=== PATIENT | female | born 1985 | race Caucasian/White ===

== ENCOUNTER → 2017-03-21 | Outpatient (CLI) | payer BC ==
[~2017-03-21] MED LIST: PRENTAB26 PO
[2017-03-21 16:41] LABS: BASO % 0.2 %; BASO ABS # 0.02 K/uL (0-0.2); EOS % 1.7 %; IG% 0.4 %; LYMPH % 18.3 %; LYMPH ABS # 1.88 K/uL (1.2-3.4); MEAN CELL VOLUME 85.8 fL (80-100); MEAN CORPUSCULAR HEMOGLOBIN 30.9 pg (25-34); MEAN CORPUSCULAR HGB CONC 35.9 g/dl (32-36); MEAN PLATELET VOLUME 10.5 fL (7.4-10.4); MONO % 3.8 %; NEUT % 75.6 %; PLATELET COUNT 329 K/uL (130-400); RED BLOOD COUNT 4.31 M/uL (4.2-5.4); WHITE BLOOD COUNT 10.25 K/uL (4.8-10.8)
[2017-03-21 16:42] LABS: COMPLETE YES
== END | disposition home or self-care (01) ==
LOC: C.LAB1850 15:07
PROVIDERS: ATTEND Obstetrics & Gynecology
DX: Z34.91 Encounter for supervision of normal pregnancy, unspecified, first trimester (principal); Z3A.00 Weeks of gestation of pregnancy not specified

== ENCOUNTER → 2017-03-21 | Outpatient (CLI) | payer BC ==
[2017-03-21 18:29] LABS: URINE APPEARANCE CLEAR (CLEAR); URINE BILIRUBIN NEG (NEG); URINE COLOR YELLOW; URINE NITRITE NEG (NEG); URINE SPECIFIC GRAVITY 1.021 (1.000-1.030); UROBILINOGEN NEG (NEG)
[2017-03-21 18:37] LABS: MANUAL MICROSCOPIC REQUIRED? NO; REVIEW REQ? NO
[2017-03-25 01:36] LABS: CHLAMYDIA TRACH RNA*** NOT DETECTED (NOT DETECTED); GC (NEIS GONORRHOEAE)RNA** NOT DETECTED (NOT DETECTED)
== END | disposition home or self-care (01) ==
LOC: C.LABSPEC 17:30
PROVIDERS: ATTEND Obstetrics & Gynecology
DX: Z34.91 Encounter for supervision of normal pregnancy, unspecified, first trimester (principal); Z3A.00 Weeks of gestation of pregnancy not specified

== ENCOUNTER → 2017-03-21 | Outpatient (CLI) | payer BC | END | disposition home or self-care (01) | LOC: C.PAPS 10:26 | PROVIDERS: ATTEND Obstetrics & Gynecology | DX: Z34.90 Encounter for supervision of normal pregnancy, unspecified, unspecified trimester (principal); Z3A.00 Weeks of gestation of pregnancy not specified ==

== ENCOUNTER → 2017-05-24 | Outpatient (CLI) | payer BC | END | disposition home or self-care (01) | LOC: C.LAB 07:14 | PROVIDERS: ATTEND Obstetrics & Gynecology | DX: O28.1 Abnormal biochemical finding on antenatal screening of mother (principal); Z3A.00 Weeks of gestation of pregnancy not specified ==

== ENCOUNTER → 2017-08-08 | Outpatient (CLI) | payer BC | END | disposition home or self-care (01) | LOC: C.LABSPEC 17:44 | PROVIDERS: ATTEND Obstetrics & Gynecology | DX: Z34.93 Encounter for supervision of normal pregnancy, unspecified, third trimester (principal) ==

== ENCOUNTER → 2017-08-09 | Outpatient (CLI) | payer BC ==
[2017-08-09 07:53] LABS: HEMATOCRIT 31.7 % (37-47)
== END | disposition home or self-care (01) ==
LOC: C.LAB 07:07
PROVIDERS: ATTEND Obstetrics & Gynecology
DX: Z34.93 Encounter for supervision of normal pregnancy, unspecified, third trimester (principal)

== ENCOUNTER → 2017-10-02 | Outpatient (CLI) | payer BC | END | disposition home or self-care (01) | LOC: C.LABSPEC 18:35 | PROVIDERS: ATTEND Obstetrics & Gynecology | DX: Z34.83 Encounter for supervision of other normal pregnancy, third trimester (principal); Z3A.00 Weeks of gestation of pregnancy not specified ==

== ENCOUNTER 2017-10-26 22:40 | Inpatient (IN) | payer BC ==
[~2017-10-26] VITALS: Ht 152.4 cm; Wt 61.0 kg
[2017-10-26] MEDS ORDERED: LACTATED RINGER'S 1000ML 1,000 ML IV PRN (22:51)
[2017-10-26] MEDS ORDERED: LACTATED RINGER'S 1000ML 1,000 ML IV SCH (22:51)
[2017-10-26] MEDS ORDERED: OXYTOCIN 30 UNITS/500ML NSS IV ONE (22:53)
[2017-10-26] MEDS ORDERED: LANOLIN OINT EXT PRN (23:45)
[2017-10-26] MEDS ORDERED: OXYTOCIN 30 UNITS/500ML NSS IV PRN (23:45)
[2017-10-26] MEDS ORDERED: ACETAMINOPHEN 325 MG TAB PO PRN (23:45)
[2017-10-26] MEDS ORDERED: SUPERCREAM 0.870 % 15GM JAR EXT PRN (23:45)
[2017-10-26] MEDS ORDERED: OXYCODONE/ACETAMINOPHEN 5-325 TAB PO PRN (23:45)
[2017-10-26] MEDS ORDERED: DIPHTHERIA/TETANUS/PERTUSSIS 0.5 ML SYR/VIAL IM. ONE (23:45)
[2017-10-26] MEDS ORDERED: HYDROCORTISONE ACETATE 25 MG SUPP PR PRN (23:45)
[2017-10-26] MEDS ORDERED: BENZOCAINE 20% AER SPR 82.5 GM CAN EXT PRN (23:45)
[2017-10-27 00:29] VITALS: Ht 152.4 cm; Wt 61.0 kg
--- NOTE | 2017-10-27 01:04 | DELIVERY SUMMARY ---
DATE OF OPERATION: 10/26/2017 PREOPERATIVE DIAGNOSES: 1. Intrauterine at 39 and 4/7 weeks. 2. Spontaneous rupture of membranes. 3. Active labor. POSTOPERATIVE DIAGNOSES: 1. Intrauterine at 39 and 4/7 weeks. 2. Spontaneous rupture of membranes. 3. Active labor. PROCEDURES: 1. Normal spontaneous vaginal delivery. 2. First-degree sina-laceration with repair. SURGEON: Krystin Valdivia MD ANESTHESIA: Local infiltration of lidocaine to the vagina. ESTIMATED BLOOD LOSS: 400 mL. PROCEDURE IN DETAIL: The patient presented to labor and delivery in active labor with an anterior lip. When I got into the room after another couple of contractions, she was complete-complete and +1 station. She then pushed over 3 contractions to deliver a viable female in LOVELY presentation. There was no nuchal cord. The nose and mouth were bulb suctioned and the rest of the infant was then delivered without difficulty. The nose and mouth were again bulb suctioned. The was placed on maternal abdomen for drying and attention. The cord was clamped and cut at 1 minute of life. Cord blood and segment were obtained. Placenta was delivered spontaneously intact with a 3-vessel cord. Cervix, sulci, and rectum were examined and found to be intact. A small first degree vaginal/perineal laceration was repaired with 3-0 Vicryl in a normal standard fashion. After infiltrating the area with 1% lidocaine, hemostasis was obtained with dilute Pitocin and fundal massage. Estimated blood loss 400 mL. Apgars 8 and 9. Mother and baby doing well at the end of the delivery. I attest to the content of the Intraoperative Record and any orders documented therein. Any exception s are noted below.
[2017-10-27 03:00] VITALS: BP 128/62; PULSE 80; TEMP 36.4
[2017-10-27] MEDS: IBUPROFEN 600 MG TAB PO PRN ×2 (05:11→15:10)
[2017-10-27 06:03] LABS: HEMOGLOBIN 11.9 g/dL (12.0-16.0)
--- NOTE | 2017-10-27 06:27 | Progress Note ---
Subjective October 27, 2017. Subjective conversation w/ patient Ambulation: ambulating normally Voiding: no voiding problems Diet Tolerance: Regular Diet Lochia: Moderate Feeding Type: Breast Feeding Pain: Minimal abdominal cramps reported, improved with analgesia Review of Systems Constitutional: No fever, No chills Respiratory: No shortness of breath Cardiac: No chest pain Abdomen: No nausea, No vomiting Objective Vital Signs Date Time Temp Pulse Resp B/P (MAP) Pulse Ox O2 Delivery O2 Flow Rate FiO2 10/27/17 03:00 Room Air 10/27/17 03:00 36.4 80 20 128/62 (84) Room Air Physical Exam General Appearance: WELL-APPEARING, WD/WN, NO APPARENT DISTRESS Respiratory/Chest: lungs clear, normal breath sounds Cardiovascular: regular rate, rhythm Abdomen: soft Fundus: Firm, Non-Tender, Relation to Umbilicus (at u) Extremities: no pedal edema, no calf tenderness Laboratory Results Last 24 Hours Test 10/27/17 05:46 Hemoglobin 11.9 g/dL Hematocrit 34.0 % Assessment and Plan Post- (1) Continue Routine Care: 32F s/p NVD day 1 - A+, Rubella Immune, GBS -ve - pt doing well clinically - Vital signs reviewed and WNL - Encourage ambulation, monitor and control pain with Motrin PRN - anticipate d/c tomorrow Resident Physician Supervision Note: I interviewed and examined the patient. Discussed with Dr. Stone and agree with findings and plan as documented in the note. Any exceptions or clarifications are listed here: Doing well. Routine care. Documented By: Krystin Valdivia Resident Tracking Resident Involvement: Resident Care Provided Care Provided: OB Delivery
--- NOTE | 2017-10-27 06:36 | Discharge Instructions ---
Discharge Instructions Date of Service October 27, 2017. Admission Reason for Admission: Check Rupture Discharge Discharge Diagnosis / Problem: Discharge Goals Goal(s): Routine recovery after Medications Continue Dispensed Medications: supercream, dermaplast, tucks, lansinoh Activity Recommendations Activity Limitations: per Instructions/Follow-up section . Instructions / Follow-Up Instructions / Follow-Up ACTIVITY RECOMMENDATIONS: * Gradual return to full activity over the next 2-3 weeks. * No lifting - nothing heavier than baby over the next 2-3 weeks. * Do not engage in vigorous exercise, sexual activity or sports until cleared by your physician. * Do not drive or operate any motorized equipment until cleared by your physician. * You may shower/bathe daily. MEDICATIONS: For discomfort or pain, you may use Acetaminophen (Tylenol), Ibuprofen (Advil), or Naproxen (Aleve) following the package directions. For constipation you may use Colace following the package directions. BREAST CARE: If you are not breast feeding: * Wear a supportive bra 24 hours a day for one to two weeks. * Avoid stimulating your breasts and nipples as much as possible during the first few weeks after delivery. * When taking a shower, have the warm water hit your back, not breasts. * When your breasts feel full, apply ice packs. Usually three to four times a day helps ease the discomfort. * Take a mild pain medication (Tylenol / Motrin) when you are uncomfortable. If breast feeding: * Use breast milk to lubricate nipples. Lansinoh cream may be used for sore nipples. You do not need to remove cream prior to breast feeding. If using a different brand of cream, check the label for directions regarding removal of cream prior to nursing. * Wear a supportive bra. * If having problems with breasts or breast feeding, call a sap ppm consultant or your health care provider. EPISIOTOMY CARE: After delivery, if you have an episiotomy (stitches), the following steps will ease discomfort and aid healing. * For the first 24 hours after delivery, place ice packs next to your episiotomy to help reduce swelling. * After the first 24 hour-period, sitz baths, either portable or in the tub, are suggested. A shower with a shower arm sprayed over the episiotomy may be comforting. * Lexii care should be done after each voiding and bowel movement. Squirt warm water from a plastic bottle over the perineum (region of the body between the anus and urinary opening) and pat dry. * Use Dermoplast to ease discomfort. Shake container. [place] directly over the episiotomy. Place a Tucks on a clean sanitary pad next to your episiotomy. SPECIAL CARE INSTRUCTIONS: When you are discharged from the hospital, it is important for you to follow the instructions listed below: * During the first week at home, you should be able to care for yourself and your baby. In addition, the usual light household activities are encouraged. * Limit your activities to the way you feel. Do not try to clean the house or move furniture. Be sensible. * If you actively engage in sports and have done so up until the time of your delivery, you may resume these activities as soon as you feel able. This may take up to one month or even longer. Use good judgment. * Continue to take your vitamins for at least six weeks after the of your baby. * Your diet need not be limited unless you were on a special diet before your delivery. Breast-feeding mothers need around 2500 calories per day and at least 64-80 ounces of fluid per day (8 to 10 glasses). * You should eat foods from the four major food groups. Crash diets or fad diets are to be avoided. Eating lean meats, fresh fruits and vegetables, low-fat dairy products, high fiber foods and a regular exercise program, will help you get back to your pre- weight without putting your health at risk. * Constipation is sometimes a problem after delivery. Take a mild laxative as needed. If breast feeding, Milk of Magnesia is acceptable to use. You may use a suppository or Fleets enema if no episiotomy. * A daily shower or tub bath is suggested. Be sure to thoroughly and gently dry the perineum. * A bloody vaginal discharge will usually continue until around four weeks post . A small amount of bleeding may continue for as long as six weeks. Vaginal discharge changes from the bright red bleeding after delivery to pink then brownish and finally yellowish-pink before becoming white and disappearing. * Bleeding may increase with activity. Your first period may come in 4-8 weeks. If you are breast feeding, your period may be delayed even longer. * Adwolf (sex) can begin whenever both you and your partner feel comfortable and do not have any form of genital infection. It is recommended that you wait at least six weeks for internal and external healing to occur. If you have questions, please talk to your health care practitioner. A condom should be used to prevent infection and . * Foreplay, gentle intercourse and lubrication is very important the first several times to prevent pain. A water-based lubricant such as K-Y jelly or Astroglide may be used. * If you have RH negative blood and your baby is RH positive, you will receive RHOGAM by injection prior to discharge. The nurse will give you a card to keep with you that has the date and place that you received RHOGAM after delivery. * During your care, you had a Rubella screen done to check for the presence of rubella antibodies in your blood. If your test was negative, you will receive a Rubella vaccine prior to discharge. This vaccine may cause a fever, soreness at the injection site and flu-like symptoms. If these symptoms persist, notify your health care practitioner. is not advised for one month after a Rubella vaccine. * Verbalizes understanding of car seat law as reviewed with patient nursing. * Car Seat hand-out given and reviewed with patient by nursing. * Shaken baby information reviewed with patient by nursing. Call you doctor if: * Heavy bleeding (saturating several pads an hour) or passing clots the size of your fist. * A fever >101 degrees F (38.3 degrees C) on two occasions four hours apart and /or chills. * Unusual pain in the pelvic or vaginal areas. * "Baby Blues" lasting longer than two weeks. If you have any questions or concerns, call your health care practitioner at . FOLLOW UP VISIT: * Please call the office at to schedule a 6 week examination. It is important you keep this appointment. It is important for you to make arrangements for either yearly or twice yearly check-ups thereafter. Current Hospital Diet Patient's current hospital diet: Regular OB Diet Discharge Diet Recommended Diet: Regular Diet Pending Studies Studies pending at discharge: no Medical Emergencies . Who to Call and When: Medical Emergencies: If at any time you feel your situation is an emergency, please call [phone] immediately. . Non-Emergent Contact Non-Emergency issues call your: Primary Care Provider . . "Provider Documentation" section prepared by Andrea Stone. .
[2017-10-27 06:50] VITALS: BP 101/68; PULSE 76; TEMP 36.8
[2017-10-27] MEDS: PRENATAL VITAMIN TAB PO SCH (08:14)
[2017-10-27] MEDS: DOCUSATE SODIUM 100 MG CAP PO SCH ×2 (08:14→19:58)
[2017-10-27 12:00] VITALS: BP 106/69; PULSE 77; TEMP 37; O2SAT 97
[2017-10-27 16:05] VITALS: O2SAT 96
[2017-10-27 19:20] VITALS: BP 110/69; PULSE 80; TEMP 37; O2SAT 95
[2017-10-27 23:30] VITALS: BP 98/63; PULSE 75; TEMP 36.8
--- NOTE | 2017-10-28 06:44 | Progress Note ---
Subjective October 28, 2017. Subjective conversation w/ patient Ambulation: ambulating normally Voiding: no voiding problems Diet Tolerance: Regular Diet Lochia: Small Feeding Type: Breast Feeding Pain: Pt reports she does not have any pain Review of Systems Constitutional: No fever, No chills Respiratory: No shortness of breath Cardiac: No chest pain Abdomen: No nausea, No vomiting Objective Vital Signs Date Time Temp Pulse Resp B/P (MAP) Pulse Ox O2 Delivery O2 Flow Rate FiO2 10/27/17 23:30 36.8 75 16 98/63 (75) 10/27/17 23:30 Room Air 10/27/17 19:20 37.0 80 16 110/69 (83) 95 Room Air 10/27/17 16:05 96 Room Air 10/27/17 12:00 37.0 77 16 106/69 (81) 97 Room Air 10/27/17 07:45 Room Air 10/27/17 06:50 36.8 76 15 101/68 (79) Physical Exam General Appearance: WELL-APPEARING, WD/WN, NO APPARENT DISTRESS Respiratory/Chest: lungs clear, normal breath sounds Cardiovascular: regular rate, rhythm Abdomen: soft Fundus: Firm, Tender, Relation to Umbilicus (at u) Extremities: no pedal edema, no calf tenderness Assessment and Plan Post- Day#: 2 Continue Routine Care: 32F s/p NVD day 2 - A+, Rubella Immune, GBS -ve - pt doing very well clinically - Vital signs reviewed and WNL - pt ready for d/c today, will review d/c instructions Resident Physician Supervision Note: I interviewed and examined the patient. Discussed with Dr. Mendez and agree with findings and plan as documented in the note. Any exceptions or clarifications are listed here: [None] Documented By: Roberto Garber Resident Tracking Resident Involvement: Resident Care Provided Care Provided: OB Delivery
[2017-10-28 07:24] VITALS: BP 109/74; PULSE 80; TEMP 36.9
[2017-10-28] MEDS: PRENATAL VITAMIN TAB PO SCH (08:28)
[2017-10-28] MEDS: DOCUSATE SODIUM 100 MG CAP PO SCH (08:28)
[2017-10-28] MEDS: IBUPROFEN 600 MG TAB PO PRN (09:25)
[2017-10-28 11:58] VITALS: BP_DIAS 74; PULSE 80; TEMP 36.9
== END 2017-10-28 15:05 | disposition home or self-care (01) | DRG 775 ==
LOC: C.LD 22:40 → C.OPB 22:40 → C.LD 23:11 → C.OBG 10-27 02:58
PROVIDERS: ADMIT Obstetrics & Gynecology; ATTEND Obstetrics & Gynecology
PROC: 10E0XZZ Delivery of Products of Conception, External Approach (ICD-10-PCS; principal; 2017-10-26)
PROC: 0HQ9XZZ Repair Perineum Skin, External Approach (ICD-10-PCS; principal; 2017-10-26)
DX: O70.0 First degree perineal laceration during delivery (principal); Z37.0 Single live birth; Z3A.39 39 weeks gestation of pregnancy

== ENCOUNTER 2019-09-05 23:21 | Inpatient (IN) ==
[2019-09-06] MEDS ORDERED: OXYTOCIN 30 UNITS/500 ML BAG IV PRN ×2 (00:22→07:11)
[2019-09-06] MEDS ORDERED: LACTATED RINGER'S 1,000 ML IV PRN (00:22)
--- NOTE | 2019-09-06 00:26 | History & Physical Report ---
Date of Service September 06, 2019 Assessment & Plan (1) with 39 completed weeks gestation: (2) Normal labor: fetus category one. has definitely made change since last visit. given hx of rapid labor, will admit and expectantly manage. Anticipate . History of Present Illness Chief Complaint: contractions Primary Care Provider: Ike Trejo MD Patient is a 34yowf with iup at 39 6/7 weeks who presents to labor and delivery with complaints of contractions. Got regular about 10 pm. losing mucous plug. no vb/lof. +fm. This uncomplicated. Notes two previous rapid deliveries. labs--A+/ab-/ri/rprnr/hiv neg/hepb neg/gc/ct-/gbs neg/gtt x 1 normal. Allergies Allergy/AdvReac Type Severity Reaction Status Date / Time pseudoephedrine AdvReac Unknown VOMITING Verified 09/05/19 23:40 12 Hour Decongestant TB12 Allergy Mild GI SYMPTOMS Uncoded 09/05/19 23:39 Home Medications Home Medications Medication Instructions Recorded Confirmed Type vit-iron fum-folic ac 1 tab PO QAM 07/10/18 09/02/19 History [ Vitamin] ferrous sulfate PO 07/15/19 09/02/19 History Patient History Social History (Updated 01/27/19 @ 10:30 by Heather Olsen) Preferred Language: Albanian Communication Ability: Effective Physical Anthropologist Required: No Beliefs That Will Affect Care: None marital status: Current Living Situation: Spouse Current Living Situation Comment: 2 daughters, no pets current occupational status: employed current occupation: Speech language pathologist Feels Safe at Home: Yes Safety Concerns: Feels Safe At This Time Smoking Status: Former smoker Second Hand Exposure: No ; Hx Alcohol Use: No Hx Substance Use: No OB History g1--5/16, , 41 weeks, labor length 3 hours, 8#, no issues g2--5/18, , 39 weeks, labor length one hour, 8#, no issues 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 Review of Systems All systems reviewed & are unremarkable except as noted in HPI & below Physical Exam Constitutional: WD/WN, vitals as above Gastrointestinal (Abdomen): soft, gravid, nt Psychiatric: A+Ox3, euthymic affect Genitourinary: cx--3/80/-2 toco--q2-4min efm--130s with mod variability , accels to 150s, no decels Results & Data Vital Signs (Past 12 Hours) Vital Signs Temp Pulse Resp BP 09/05/19 23:40 36.3 C L 106 H 18 121/79 09/05/19 23:31 106 H 121/79 Code Status & VTE Plan VTE Prophylaxis Plan VTE Prophylaxis will be ordered: No Coding Level of Care Code None Diagnoses with 39 completed weeks gestation Z3A.39 Normal labor O80; Z37.9
[2019-09-06 00:41] LABS: Hematocrit (blood only) 36.7 % (37-47); Hemoglobin 12.7 g/dL (12.0-16.0); Mean Corpuscular Hemoglobin 30.4 pg (25-34); Mean Corpuscular Volume 87.8 fL (80-100); Mean Platelet Volume 10.6 fL (7.4-10.4); Platelet Count 226 K/uL (130-400); RDW Coefficient of Variation 15.2 % (11.5-14.5); RDW Standard Deviation 48.7 fL (36.4-46.3); Red Blood Count 4.18 M/uL (4.2-5.4); White Blood Count 10.49 K/uL (4.8-10.8)
[2019-09-06 00:49] LABS: Mean Corpuscular Hgb Conc 34.6 g/dL (32-36)
--- NOTE | 2019-09-06 03:29 | Labor Progress Brief Note ---
Date of Service September 06, 2019 Subjective tolerating contractions well. Assessment & Plan (1) Normal labor: continue expectant management. Offered arom, declines at this time. Fetus reassuring. Anticipate . Physical Exam Constitutional: WD/WN, vitals as above Psychiatric: A+Ox3, euthymic affect Genitourinary: cx--6+/100/-1 toco--q2-4min fm--130s with mod variability, small accels , no decels Results & Data Vital Signs (Past 12 Hours) Vital Signs Temp Pulse Resp BP 09/05/19 23:40 36.3 C L 106 H 18 121/79 09/05/19 23:31 106 H 121/79 Coding Level of Care Code None Diagnoses Normal labor O80; Z37.9
--- NOTE | 2019-09-06 06:14 | Labor Progress Brief Note ---
Date of Service September 06, 2019 Subjective getting more uncomfortable and feeling pressure Assessment & Plan (1) Normal labor: arom done, clear, continue current management. fetus reassuring anticipate . Physical Exam Constitutional: WD/WN, vitals as above Psychiatric: A+Ox3, euthymic affect Genitourinary: cx--8-9/100/0 toco--q2-3min efm--125 with mod variability, accels present Results & Data Vital Signs (Past 12 Hours) Vital Signs Temp Pulse Resp BP 09/05/19 23:40 36.3 C L 106 H 18 121/79 09/05/19 23:31 106 H 121/79 Coding Level of Care Code None Diagnoses Normal labor O80; Z37.9
[2019-09-06] MEDS ORDERED: ACETAMINOPHEN 325 MG TAB PO PRN (07:09)
[2019-09-06] MEDS ORDERED: OXYCODONE/ACETAMINOPHEN 5mg/325mg TAB PO PRN (07:09)
[2019-09-06] MEDS ORDERED: DIPHTHERIA/TETANUS/PERTUSSIS 0.5 ML SYR/VIAL IM ONE (07:11)
[2019-09-06] MEDS ORDERED: HYDROCORTISONE ACETATE 25 MG SUPP PR PRN (07:11)
[2019-09-06] MEDS ORDERED: bisacodyL 10 MG SUPP PR PRN (07:11)
[2019-09-06] MEDS ORDERED: BENZOCAINE 20% AER SPR 82.5 GM CAN EXT PRN (07:11)
[2019-09-06] MEDS ORDERED: OXYTOCIN 10 UNITS/ML VIAL IM ONE (07:11)
[2019-09-06] MEDS ORDERED: SUPERCREAM 0.870% 15 GM JAR EXT PRN (07:11)
--- NOTE | 2019-09-06 07:13 | Delivery Summary ---
Vaginal Delivery Summary Date of Service September 06, 2019 Vaginal Delivery Summary Pre-operative Diagnosis: at 39 6/7 active labor Post-operative Diagnosis: same shoulder dystocia first degree laceration Procedure: arom estefani, suprapubic pressure, posterior rotation of shoulder first degree laceration EBL: 400cc Anesthesia: local lidocaine Procedure: The patient pushed for 7 minutes to deliver a viable male in balta position. The nose and mouth were bulb suctioned on the perineum, no nuchal cord. On attempt to deliver the anterior shoulder, revealed a dystocia. It was resolved in approximately one minute wtih estefani, suprapubic pressure, and rotation of the posterior shoulder. The rest of the baby then delivered with terminal mec. The baby was immediately vigorous. The nose and mouth were again bulb suctioned and the infant was placed in the maternal abdomen for drying and attention. Cord was clamped and cut at one minute of life. Cord blood and segment obtained. Placenta delivered spontaneous, intact with a three vessel cord. Cervix/sulci/rectum were intact. A first degree perineal laceration was repaired in the normal standard fashion. Hemostasis obtained with dilute pitocin and fundal massage. Apgars were 8/9. Mother and baby doing well at the end of the delivery.
[2019-09-06] MEDS ORDERED: OXYTOCIN 10 UNITS/ML VIAL ONE (07:14)
[2019-09-06] MEDS: IBUPROFEN 600 MG TAB PO PRN ×2 (10:58→16:38)
[2019-09-06] MEDS: PRENATAL VITAMIN 1 TAB PO SCH (14:18)
[2019-09-06] MEDS: DOCUSATE SODIUM 100 MG CAP PO SCH ×2 (14:18→20:16)
--- NOTE | 2019-09-07 08:20 | Obstetrical Progress Note ---
Date of Service September 07, 2019 Assessment & Plan (1) : PPD#1 doing well. Continue routine care. Subjective Ambulation: ambulating normally Voiding: no voiding problems Diet Tolerance:: regular diet Lochia:: Moderate Feeding Type:: breast feeding PPD#1 doing well. Review of Systems All systems reviewed & are unremarkable except as noted in HPI & below Physical Exam Constitutional WD/WN, vitals as above no acute distress Respiratory normal respiratory effort Cardiovascular Rate/Rhythm: regular rate and regular rhythm Gastrointestinal (Abdomen) Inspection/Auscultation: abdomen normal to inspection; abdomen not distended Percussion/Palpation: abdomen soft Genitourinary OB Exam Abdomen: + fundal height Fundus: + firm; not tender Results & Data Vital Signs (Past 12 Hours) Vital Signs Temp Pulse Resp BP 09/07/19 03:10 36.7 C 93 H 16 98/65 L 09/06/19 23:10 36.6 C 77 16 105/68
[2019-09-07] MEDS: PRENATAL VITAMIN 1 TAB PO SCH (08:35)
[2019-09-07] MEDS: DOCUSATE SODIUM 100 MG CAP PO SCH ×2 (08:35→21:28)
[2019-09-07] MEDS: IBUPROFEN 600 MG TAB PO PRN ×2 (10:07→21:30)
[2019-09-07] MEDS ORDERED: bisacodyL 5 MG TABEC PO SCH (20:00)
[2019-09-08 06:07] LABS: Hematocrit (blood only) 35.5 % (37-47); Hemoglobin 12.1 g/dL (12.0-16.0)
[2019-09-08] MEDS: DOCUSATE SODIUM 100 MG CAP PO SCH (08:16)
[2019-09-08] MEDS: PRENATAL VITAMIN 1 TAB PO SCH (08:16)
--- NOTE | 2019-09-08 08:32 | Obstetrical Progress Note ---
Date of Service September 08, 2019 Assessment & Plan (1) : PPD#2 doing well. Stable for discharge. Subjective Ambulation: ambulating normally Voiding: no voiding problems Diet Tolerance:: regular diet Lochia:: Moderate Feeding Type:: breast feeding Physical Exam Constitutional WD/WN, vitals as above Respiratory normal respiratory effort; no respiratory distress and no labored breathing Gastrointestinal (Abdomen) Inspection/Auscultation: abdomen normal to inspection; abdomen not distended Percussion/Palpation: abdomen soft; abdomen nontender, no guarding and abdomen not rigid Genitourinary OB Exam Abdomen: + fundal height Fundus: + firm and + relation to umbilicus (Below); not tender and not boggy Results & Data Vital Signs (Past 12 Hours) Vital Signs Temp Pulse Resp BP 09/07/19 23:30 36.7 C 77 18 112/72
[2019-09-08] MEDS: IBUPROFEN 600 MG TAB PO PRN (09:49)
== END 2019-09-08 10:40 | disposition home or self-care (01) | DRG 807 ==
LOC: OPB 23:21 → 4S1 23:23 → 4S2 09-06 09:37